=== PATIENT | male | born 1990 | race Caucasian/White ===

== ENCOUNTER 2024-01-16 20:53 | Emergency (ER) | payer OTHER ==
[~2024-01-16] VITALS: Ht 170.2 cm; Wt 117.9 kg
[2024-01-16 22:45] VITALS: TEMP 98.4
[2024-01-16] MEDS: TDAP [DIPH/PERTUSSIS/TET] 0.5 ML VIAL IM ONE (23:00)
[2024-01-16 23:05] VITALS: BP 125/89; O2SAT 96
[2024-01-16] MEDS ORDERED: LIDOCAINE 1%-EPI 1:100,000 20 ML VIAL ONE (23:48)
[2024-01-17] MEDS ORDERED: CEPH-570 PO (00:10)
[2024-01-17] MEDS ORDERED: TDAP [DIPH/PERTUSSIS/TET] 0.5 ML VIAL IM ONE (00:12)
== END 2024-01-17 00:20 | disposition home or self-care (01) ==
LOC: ER 20:58
DX: S81.842A Puncture wound with foreign body, left lower leg, initial encounter (principal); X58.XXXA Exposure to other specified factors, initial encounter; Y93.89 Activity, other specified; Y92.89 Other specified places as the place of occurrence of the external cause; Y99.8 Other external cause status
CPT/HCPCS: 99285; 10120; 90471; 90715; 73590; J3490